=== PATIENT | male | born 1965 | race Caucasian/White ===

== ENCOUNTER 2018-01-17 18:14 | Emergency (ER) | payer SELFPAY ==
[2018-01-17 18:15] VITALS: BP 206/119; PULSE 130; RESP 17; TEMP 36.9; O2SAT 97; BMI 32.3
--- NOTE | 2018-01-17 19:10 | RAD_ITS ---
STUDY: X-RAY - LEFT FOOT CLINICAL: Male, 52 years old. Pain and swelling [place]. TECHNIQUE: 3 view(s) of the foot. COMPARISON: None. FINDINGS: There is an Achilles spur. Normal visualized subtalar, talonavicular, calcaneocuboid, tarsal and within the first tarsometatarsal joint there is small focus of bony erosion at the joint space which is well-circumscribed possibly chronic. Normal metatarsi. There is a 1 to 2 mm small erosion in the distal medial metatarsal at the metatarsophalangeal joint, which could potentially represent a prior focus of arthritis. Normal tibial and fibular sesamoid bones. Normal interphalangeal joint of the great toe. Normal phalanges of the great toe. Normal second through fifth metatarsophalangeal joints. Normal interphalangeal joints and phalanges of the lesser toes. There is soft tissue swelling around the foot. RAD/Foot min 3 Views IMPRESSION: Tissue swelling about the foot. Nonacute appearing, bony findings of possibly gouty arthrosis in the medial side of the proximal and distal metatarsal. Electronically Signed: Blessing Walls MD at 19:39 EDT Tel , Service support ,
[2018-01-17 20:16] VITALS: BP 226/109
--- NOTE | 2018-01-17 20:49 | ED.DCSUM_ITS ---
- ER Visit Summary Date of Service: 01/17/18 Chief Complaint: Pain and swelling of left foot. History of Present Illness: The patient is a 52 M who presents with pain and swelling in his left foot. This is been present for about 5 days. He does have a history of prior similar symptoms on multiple occasions. He has been diagnosed with gout previously. He has no other complaints. He denies recent illness. He denies fever chest pain shortness of breath lightheadedness dizziness nausea vomiting headache. Physical Examination: Initial blood pressure 206/119 heart rate 130 Patient resting comfortably no distress Heart regular rate and rhythm Lungs are clear Abdomen soft Patient does have some soft tissue swelling and mild erythema over the left foot it is not hot to the touch there is no lymphangitic streaking he has no calf tenderness he has an easily palpable dorsalis pedis pulse with brisk capillary refill normal sensation Test Results: Foot x-ray shows findings consistent with possible gouty arthrosis. Emergency Department Course and Treatment: Patient has a history of gout. His history and examination are consistent with possible gout and his x-ray findings support this. He has asymptomatic elevated blood pressure with a known history of hypertension. I advised that he follow-up as an outpatient in regards to this. Given lack of any other symptoms no emergent evaluation for this is indicated. Repeat heart rate was 114. Patient will be given a prescription for prednisone and [place]. He understands to return for new or worsening symptoms and was instructed on specific signs and symptoms to monitor for and was discharged home. Treatment Plan: [] Disposition: Discharge Impression: Gout, left foot This note was generated with [employer] dictation software. It may contain incorrect words, spelling, and punctuation that were not noted in review of the chart prior to signing ED Disposition - Plan for ED Patient: Chief Complaint: Lower Extremity Injury Referrals: Care Physician,No Primary [Primary Care Provider] -
--- NOTE | 2018-01-17 20:50 | DCINST.ED_ITS ---
ED Disposition - Plan for ED Patient: Chief Complaint: Lower Extremity Injury Instructions: ED Arthritis Gout Prescriptions: Hydrocodone Bitart/Apap 5-325 [[place] 5MG-325MG] 1 tab PO Q6H PRN PRN 3 Days #10 tab PRN Reason: Pain Prednisone [Deltasone] 60 mg PO DAILY #15 tab Referrals: Care Physician,No Primary [Primary Care Provider] - Mitzi Whitman [NON-STAFF] -
--- NOTE | 2018-01-17 20:52 | EKG12_ITS ---
Test Reason : LOWER EXTRE PAIN Blood Pressure : / mmHG Vent. Rate : 111 BPM Atrial Rate : 111 BPM P-R Int : 158 ms QRS Dur : 094 ms QT Int : 360 ms P-R-T Axes : 053 000 040 degrees QTc Int : 489 ms Sinus tachycardia Otherwise normal ECG Confirmed by JERRI MUNOZ, CLARIBEL ([id number]), development editor JESSA CHASE ([id number]) on 01/20/2018 12:28:00 PM Referred By: BETSY Confirmed By:CLARIBEL GUTHRIE MD
[2018-01-17 21:16] LABS: Bacteria 0 SEEN /hpf (None Seen); Mucous, Urine 0 SEEN /hpf (<or=2+); Red Blood Cells-Urine 0 SEEN /hpf (0-5); Squamous Epithelial Cells - UA 0 SEEN /hpf (0-5); White Blood Cells 0 SEEN /hpf (0-5)
[2018-01-17 21:18] LABS: Color, Urine Yellow (Yellow); Glucose, Dipstick Normal (Normal); Ketone-Dipstick Negative (Negative); Leukocyte Esterase-Dipstick 25 /ul (Negative); Nitrite-Dipstick Negative (Negative); Occult Blood-Urine 50 /ul (Negative); Protein-Dipstick 500 mg/dl (Negative); Urine Clarity Clear (Clear); Urine Urobilinogen 12 mg/dl (Normal)
[2018-01-17 21:19] LABS: Urine Bilirubin Dipstick 1 mg/dL (Negative)
[2018-01-17 21:22] LABS: Absolute Lymphocyte Count 1.58 X10^3/ul (0.83-4.51); Absolute Neutrophil Count 8.9 X10^3/uL (2.0-7.7); Basophil# 0.02 X10^3/uL; Basophil% 0.2 % (0-1); Eosinophil# 0.02 X10^3/uL; Eosinophils% 0.2 % (0-5); Hematocrit 40.7 % (40-54); Hemoglobin 13.4 g/dl (13.0-16.5); Lymphocyte # 1.58 X10^3/ul (4.0); Lymphocyte % 13.3 % (19-41); Mean Corp Hgb Conc 32.9 g/gl (32-36); Mean Corpuscular Hgb 30.8 pg (27.0-32.0); Mean Corpuscular Volume 93.6 fL (80-94); Mean Platelet Vol. 9.7 fl (6.2-12.0); Monocyte# 1.37 X10^3/uL; Monocyte% 11.5 % (0-10); Neutrophil # 8.86 X10^3/uL (2.7-7.7); Neutrophil % 74.5 % (47-70); POSITIVE COUNT NO; POSITIVE DIFFERENTIAL NO; POSITIVE MORPHOLOGY NO; Platelet Count 319 K/mm3 (150-450); RBC Distribution Width CV 13.1 % (11.6-14.6); RBC Distribution Width SD 43.9 fl (35.1-43.9); Red Blood Count 4.35 M/mm3 (4.6-6.2); White Blood Count 11.9 K/mm3 (4.4-11.0)
[2018-01-17 21:28] LABS: Fine Granular Cast- Urine 0-5 SEEN /lpf (0-5)
[2018-01-17 21:29] LABS: Amorphous Sediment 1+
--- NOTE | 2018-01-17 21:30 | RAD_ITS ---
STUDY: X-RAY CHEST REASON FOR EXAM: Male, 52 years old. Hypertension TECHNIQUE: Frontal and lateral views of the chest were obtained. COMPARISON: None. FINDINGS: The lungs are hyperinflated. There are no focal airspace opacities. There is no demonstrated pleural abnormality. The cardiac silhouette is normal in size. The mediastinum and hilar regions are unremarkable. Normal visualized pulmonary arteries. Normal visualized aortic arch and descending thoracic aorta. There are diffuse degenerative changes of the visualized spine. The visualized ribs, clavicles, and shoulders are unremarkable. There is no demonstrated abnormality of the visualized upper abdomen. RAD/Chest PA and Lateral IMPRESSION: No acute cardiopulmonary abnormalities. Hyperinflation suggests COPD. Electronically Signed: Angelica Silva MD at 22:11 EDT Tel Direct: [phone], Service support ,
[2018-01-17 21:35] LABS: Anion Gap 8 (5-15); BUN 20 mg/dL (7-18); BUN/Creat Ratio 15.7 RATIO (10-20); Calcium,Total 9.2 mg/dL (8.5-10.1); Chloride 101 mmol/L (98-107); Creatinine, Serum 1.27 mg/dL (0.70-1.30); EST Glomerular Filtration Rate 64 mL/min (>60); Est Glom Filt Rate - Afr Amer 77 mL/min (>60); Glucose 105 mg/dL (74-106); Sodium Level 138 mmol/L (136-145)
[2018-01-17] MEDS: HYDROcodone Bitartrate/Apap 5/325 Tablet PO (22:00)
--- NOTE | 2018-01-17 22:30 | ED.DEP ---
ED Disposition - Plan for ED Patient: Chief Complaint: Lower Extremity Injury Instructions: ED Arthritis Gout, ED Hypertension Conf Out Of Control Prescriptions: Hydrocodone Bitart/Apap 5-325 [[place] 5MG-325MG] 1 tab PO Q6H PRN PRN 3 Days #10 tab PRN Reason: Pain Prednisone [Deltasone] 60 mg PO DAILY #15 tab Referrals: Mitzi Whitman [NON-STAFF] - Care Physician,No Primary [Primary Care Provider] - Juanito Trujillo MD [NON-STAFF] -
[2018-01-17 22:33] VITALS: BP 205/90; PULSE 89; RESP 16; O2SAT 99
== END 2018-01-17 22:38 | disposition home or self-care (01) ==
PROVIDERS: Emergency Provider Emergency Medicine
DX: M10.9 Gout, unspecified (principal); I10 Essential (primary) hypertension; Z79.899 Other long term (current) drug therapy
CPT/HCPCS: 71046; 73630; 80048; 81001; 84484; 85025; 93005; 99284; A4216

== ENCOUNTER → 2018-07-22 | Outpatient (CLI) | payer MEDICAID, SELFPAY ==
[2018-07-17 13:50] VITALS: BMI 36.8
[2018-07-22 09:21] LABS: Absolute Neutrophil Count 4.7 X10^3/uL (2.0-7.7); Basophil# 0.03 X10^3/uL; Basophil% 0.4 % (0-1); Eosinophil# 0.26 X10^3/uL; Hematocrit 44.1 % (40-54); Hemoglobin 15.2 g/dl (13.0-16.5); Lymphocyte % 30.3 % (19-41); Mean Corp Hgb Conc 34.5 g/gl (32-36); Mean Corpuscular Hgb 29.3 pg (27.0-32.0); Mean Platelet Vol. 9.8 fl (6.2-12.0); Monocyte# 0.91 X10^3/uL; Monocyte% 10.6 % (0-10); Neutrophil # 4.74 X10^3/uL (2.7-7.7); Neutrophil % 55.3 % (47-70); Platelet Count 336 K/mm3 (150-450); RBC Distribution Width CV 12.9 % (11.6-14.6); RBC Distribution Width SD 40.1 fl (35.1-43.9); Red Blood Count 5.19 M/mm3 (4.6-6.2); White Blood Count 8.6 K/mm3 (4.4-11.0)
[2018-07-22 09:30] LABS: POSITIVE COUNT NO; POSITIVE DIFFERENTIAL NO; POSITIVE MORPHOLOGY NO
[2018-07-22 09:52] LABS: AST(SGOT) 24 U/L (15-37); Alanine Aminotransfer ALT/SGPT 37 U/L (16-61); Albumin, Serum 4.1 g/dL (3.2-5.0); Alkaline Phosphatase 109 U/L (45-117); Anion Gap 7 (5-15); BUN 15 mg/dL (7-18); BUN/Creat Ratio 11.5 RATIO (10-20); Bilirubin, Direct 0.08 mg/dL (0.00-0.30); Calcium,Total 9.1 mg/dL (8.5-10.1); Chloride 102 mmol/L (98-107); Cholesterol 230 mg/dL (200); Creatinine, Serum 1.31 mg/dL (0.70-1.30); EST Glomerular Filtration Rate 61 mL/min (>60); Est Glom Filt Rate - Afr Amer 74 mL/min (>60); Globulin 4.1 g/dL (2.2-4.2); Glucose 112 mg/dL (74-106); High Density Lipoprotein 49 mg/dL; Magnesium 2.1 mg/dL (1.6-2.6); Protein, Total 8.2 g/dL (6.4-8.2); Sodium Level 141 mmol/L (136-145); T4 Total, Thyroxin 8.2 ug/dL (4.5-12.1); Thyroid Stim Hormone (TSH) 3.78 uIU/mL (0.358-3.74); Triglycerides 294 mg/dL; Very Low Density Lipoprotein 59 mg/dL (5-40)
== END | disposition home or self-care (01) ==
LOC: LAB 08:10
PROVIDERS: Referring Provider Internal Medicine Cardiovascular Disease; Visit Provider Internal Medicine Cardiovascular Disease
DX: I10 Essential (primary) hypertension (principal)
CPT/HCPCS: 36415; 80048; 80061; 80076; 83735; 84436; 84443; 85025

== ENCOUNTER → 2018-07-30 | Outpatient (CLI) | payer MEDICAID, SELFPAY ==
[2018-07-17 13:50] VITALS: BMI 36.8
--- NOTE | 2018-07-30 09:39 | RDU_ITS ---
Reason For Study: HTN Right Renal Artery Left Renal Artery Right renal artery ostium Left renal artery ostium 119.4/30.9 104.3/35.2 RSV/EDV. PSV/EDV. Right renal artery proximal Left renal artery proximal PSV/EDV 108/36.9 PSV/EDV. 110.4/32.5 . Right renal artery mid 138.6/39.9 Left renal artery mid 90.3/27.4 PSV/EDV. PSV/EDV . Right renal artery distal Left renal artery distal 165.8/40 124.8/41.9 PSV/EDV. PSV/EDV. Right Renal Parenchyma Left Renal Parenchyma Upper Pole Medula 24.7/8.1 PSV/EDV. Left upper pole medulla 22.5/8.2 Right upper pole medulla EDR 0.33 . PSV/EDV . Right upper pole medulla R.I. Left upper pole medulla EDR 0.36 . 0.67 . Left upper pole medulla R.I. 0.64 . Upper Chaitanya Cortx 17.9/7.5 PSV/EDV. UP Cortex 16.4/6 PSV/EDV. Right upper pole cortex EDR 0.42 . Left upper pole cortex EDR 0.37 . Right upper pole cortex R.I. 0.58 . Left upper pole cortex R.I. 0.64 . Right lower Pole medulla 28.4/10.6 Left lower Pole medulla 24.1/8.7 PSV/EDV . PSV/EDV . Right lower pole medulla EDR 0.37 . Left lower pole medulla EDR 0.36 . Right lower pole medulla R.I. Left lower pole medulla R.I. 0.64 . 0.63 . Lower Pole Cortx 18.1/6.5 PSV/EDV. Lower Pole Cortex 21/8.1 PSV/EDV. Left lower pole cortex EDR 0.36 . Right lower pole cortex EDR 0.39 . Left lower pole cortex R.I. 0.64 . Right lower pole cortex R.I. 0.61 . Left Renal Hilar Right Renal Hilar LT Hilar avg 35.1/10.4 PSV/EDV . Right Hilar avg 46.8/15.7 PSV/EDV. Left hilar acceleration time 40 Right hilar acceleration time 70 m/sec. m/sec. Left Renal Dimensions Right Renal Dimensions Left kidney size 10.42 cm . Right kidney size 10.8 cm . Left cortical dimension 1.24 cm . Right cortical dimension 1.68 cm . Hypoechoic structure noted Hypoechoic structure noted measuring approximently 2.20 x 1.89 measuring approximently 3.42x 3.33 cm. cm. Aorta Proximal abdominal aorta 1.56 x 1.61 cm . Proximal abdominal aorta peak systolic velocity is 140.5 cm/sec . Distal abdominal aorta 1.39 x 1.41 cm . Distal abdominal aorta peak systolic velocity is 124.9 cm/sec . Interpretation Summary 1. Bilateral <60% renal artery stenosis. Ordering Physician: Giorgi Arriaga Performed By: Lizzette Adhikari RVT
== END | disposition home or self-care (01) ==
LOC: CVS 09:39
PROVIDERS: Referring Provider Internal Medicine Cardiovascular Disease; Visit Provider Internal Medicine Cardiovascular Disease
DX: I10 Essential (primary) hypertension (principal)
CPT/HCPCS: 93975

== ENCOUNTER → 2018-09-01 | Outpatient (CLI) | payer MEDICAID, SELFPAY ==
[2018-07-31 13:49] VITALS: BMI 36.9
[2018-08-29 13:30] VITALS: BMI 36.6
[2018-09-01] MEDS: Zolpidem Tartrate 5 MG Tablet PO (21:45)
== END | disposition home or self-care (01) ==
LOC: SL 20:30
PROVIDERS: Referring Provider Physician Assistant Medical; Visit Provider Physician Assistant Medical
DX: G47.33 Obstructive sleep apnea (adult) (pediatric) (principal); I10 Essential (primary) hypertension
CPT/HCPCS: 95811

== ENCOUNTER → 2018-09-15 | Outpatient (CLI) | payer MEDICAID, SELFPAY ==
[2018-09-15 08:35] VITALS: BMI 36.8
[2018-09-15 11:19] LABS: AST(SGOT) 19 U/L (15-37); Alanine Aminotransfer ALT/SGPT 30 U/L (16-61); Albumin, Serum 4.1 g/dL (3.2-5.0); Alkaline Phosphatase 133 U/L (45-117); Bilirubin, Direct 0.12 mg/dL (0.00-0.30); Cholesterol 106 mg/dL (200); Globulin 4.3 g/dL (2.2-4.2); High Density Lipoprotein 43 mg/dL; Protein, Total 8.4 g/dL (6.4-8.2); Triglycerides 156 mg/dL; Very Low Density Lipoprotein 31 mg/dL (5-40)
[2018-09-15 13:42] LABS: Anion Gap 7 (5-15); BUN 20 mg/dL (7-18); BUN/Creat Ratio 16.3 RATIO (10-20); Calcium,Total 9.3 mg/dL (8.5-10.1); Chloride 105 mmol/L (98-107); Creatinine, Serum 1.23 mg/dL (0.70-1.30); EST Glomerular Filtration Rate 66 mL/min (>60); Est Glom Filt Rate - Afr Amer 80 mL/min (>60); Glucose 108 mg/dL (74-106); Potassium 3.9 mmol/L (3.5-5.1); Sodium Level 140 mmol/L (136-145)
== END | disposition home or self-care (01) ==
LOC: LAB 09:42
PROVIDERS: Internal Medicine Cardiovascular Disease; Referring Provider Nurse Practitioner Family; Visit Provider Nurse Practitioner Family
DX: I10 Essential (primary) hypertension (principal); I70.1 Atherosclerosis of renal artery; E78.2 Mixed hyperlipidemia
CPT/HCPCS: 36415; 80048; 80061; 80076

== ENCOUNTER → 2018-09-22 | Outpatient (CLI) | payer MEDICAID, SELFPAY ==
[2018-09-15 08:35] VITALS: BMI 36.8
== END | disposition home or self-care (01) ==
LOC: SL 13:53
PROVIDERS: Referring Provider Nurse Practitioner Acute Care; Visit Provider Nurse Practitioner Acute Care
DX: Z00.00 Encounter for general adult medical examination without abnormal findings (principal)

== ENCOUNTER → 2019-06-01 11:14 | Outpatient (CLI) | payer MEDICAID, SELFPAY ==
[2019-05-20 10:09] VITALS: BMI 36.8
[2019-06-01 12:04] LABS: Anion Gap 7 (5-15); BUN 25 mg/dL (7-18); BUN/Creat Ratio 17.6 RATIO (10-20); Calcium,Total 9.2 mg/dL (8.5-10.1); Chloride 104 mmol/L (98-107); Creatinine, Serum 1.42 mg/dL (0.70-1.30); EST Glomerular Filtration Rate 56 mL/min (>60); Est Glom Filt Rate - Afr Amer 67 mL/min (>60); Glucose 113 mg/dL (74-106); Potassium 3.4 mmol/L (3.5-5.1); Sodium Level 141 mmol/L (136-145)
== END ==
PROVIDERS: Referring Provider Internal Medicine Cardiovascular Disease; Visit Provider Internal Medicine Cardiovascular Disease
DX: I70.1 Atherosclerosis of renal artery (principal); I10 Essential (primary) hypertension
CPT/HCPCS: 36415; 80048

== ENCOUNTER → 2020-03-09 12:12 | Outpatient (CLI) | payer MEDICAID, SELFPAY ==
[2020-03-09 13:13] LABS: Hemoglobin A1c 6.5 % (3.8-5.6)
[2020-03-09 13:22] LABS: ALB/GLOB Ratio 1.1 RATIO (0.9-2.4); AST(SGOT) 23 U/L (15-37); Alanine Aminotransfer ALT/SGPT 49 U/L (16-61); Albumin, Serum 4.1 g/dL (3.2-5.0); Alkaline Phosphatase 131 U/L (45-117); Anion Gap 3 (5-15); BUN 20 mg/dL (7-18); BUN/Creat Ratio 13.2 RATIO (10-20); Calcium,Total 9.5 mg/dL (8.5-10.1); Chloride 103 mmol/L (98-107); Cholesterol 140 mg/dL (200); Creatinine, Serum 1.51 mg/dL (0.70-1.30); EST Glomerular Filtration Rate 52 mL/min (>60); Est Glom Filt Rate - Afr Amer 62 mL/min (>60); Globulin 3.8 g/dL (2.2-4.2); Glucose 103 mg/dL (74-106); High Density Lipoprotein 43 mg/dL; Potassium 3.7 mmol/L (3.5-5.1); Protein, Total 7.9 g/dL (6.4-8.2); Sodium Level 139 mmol/L (136-145); Triglycerides 222 mg/dL; Very Low Density Lipoprotein 44 mg/dL (5-40)
== END ==
PROVIDERS: Referring Provider Physician Assistant Medical; Visit Provider Physician Assistant Medical
DX: I70.1 Atherosclerosis of renal artery (principal); I10 Essential (primary) hypertension
CPT/HCPCS: 36415; 80053; 80061; 83036

== ENCOUNTER → 2020-05-27 14:20 | Outpatient (CLI) | payer MEDICAID, SELFPAY ==
[2020-05-19 14:17] VITALS: BMI 39.6
--- NOTE | 2020-05-27 14:24 | ECHOCS_ITS ---
Reason For Study: HTN Procedure This was a 2D Doppler, Color Flow transthoracic echocardiogram. The study was technically difficult. Contrast injection was performed. Exam performed in department. Left Ventricle Normal LV size. Left ventricular systolic function is normal. The estimated ejection fraction is 60 %. Diastolic function is indeterminate. No regional wall motion abnormalities noted. Right Ventricle Normal RV size. Normal systolic function. Atria Normal left atrium. Normal right atrium. No doppler evidence for ASD. Mitral Valve There is no mitral annular calcification. Normal mitral valve. Trivial mitral valve insufficiency. Tricuspid Valve Normal tricuspid valve. Trivial tricuspid valve insufficiency. Unable to estimate RV systolic pressure/pulmonary artery pressure due to technically difficult study. Aortic Valve Trisinus/trileaflet aortic valve. Normal aortic valve. Pulmonic Valve The pulmonic valve is not well visualized. Trivial pulmonic valve insufficiency. Great Vessels The aortic root is not well visualized. Pericardium/Pleural Trivial pericardial effusion. There are no echocardiographic indications of cardiac tamponade. Medication 22 gauge I.V. with prn adaptor inserted into right arm. Diluted definity 2ml given slow IV push to enhance endocardial definition. MMode/2D Measurements & Calculations LVIDd: 4.6 cm IVSd: 0.94 cm LA dimension: 3.8 cm LVIDs: 3.4 cm LVPWd: 1.1 cm FS: 25.4 % LAV(MOD-bp): 43.2 ml LA A4 area: 15.2 cm2 RA A4 area: 14.3 cm2 LAV(MOD-bp) Indexed: 20.3 ml/m2 LAV(MOD-sp2): 50.8 ml LAV(MOD-sp4): 34.8 ml Time Measurements MV dec time: 0.19 sec Doppler Measurements & Calculations MV E max mohinder: 103.3 cm/sec Lat Peak E' Mohinder: 8.4 cm/sec Med Peak E' Mohinder: 6.8 cm/sec MV A max mohinder: 81.1 cm/sec E/E' lat: 12.3 E/E' med: 15.2 MV E/A: 1.3 MV V2 max: 86.7 cm/sec MV P1/2t max mohinder: 86.7 cm/sec Ao V2 max: 131.6 cm/sec MV max P.0 mmHg MV P1/2t: 59.3 msec Ao max P.9 mmHg MV V2 mean: 57.3 cm/sec MV dec slope: 428.3 cm/sec2 MV mean P.5 mmHg MV V2 VTI: 21.1 cm MVA(P1/2t): 3.7 cm2 LV V1 max: 123.2 cm/sec PA V2 max: 97.3 cm/sec LV V1 max P.1 mmHg Interpretation Summary The study was technically difficult. Contrast injection was performed. Left ventricular systolic function is normal. The estimated ejection fraction is 60 %. Trivial mitral valve insufficiency. Trivial tricuspid valve insufficiency. Trivial pulmonic valve insufficiency. Trivial pericardial effusion. There are no echocardiographic indications of cardiac tamponade. Unable to estimate RV systolic pressure/pulmonary artery pressure due to technically difficult study. Diastolic function is indeterminate. Ordering Physician: Martha Pierson Referring Physician: No PCP noted Performed By: Shaheed Torres RCS
== END ==
PROVIDERS: Referring Provider Physician Assistant Medical; Visit Provider Physician Assistant Medical
DX: I10 Essential (primary) hypertension (principal)
CPT/HCPCS: 93306; Q9957; A4216; C8929

== ENCOUNTER → 2020-05-31 11:34 | Outpatient (CLI) | payer MEDICAID, SELFPAY ==
[2020-05-19 14:17] VITALS: BMI 39.6
[2020-05-31 12:45] LABS: Uric Acid 10.4 mg/dL (3.5-7.2)
[2020-05-31 12:46] LABS: Protein, Urine (Random) 178.5 mg/dL (<11.9); Protein:Creat Ratio 1623 mg/g CRE (0-200)
== END ==
PROVIDERS: Visit Provider Internal Medicine Nephrology
DX: M10.9 Gout, unspecified (principal); N18.31 Chronic kidney disease, stage 3a
CPT/HCPCS: 36415; 82570; 84156; 84550

== ENCOUNTER → 2020-06-22 08:11 | Outpatient (CLI) | payer MEDICAID, SELFPAY ==
[2020-05-19 14:17] VITALS: BMI 39.6
--- NOTE | 2020-06-22 08:13 | RDU_ITS ---
Reason For Study: Hypertension Right Renal Artery Left Renal Artery Right renal artery ostium 119.8/25.4 Left renal artery ostium 89.6/22.3 RSV/EDV. PSV/EDV. Right renal artery proximal Left renal artery proximal PSV/EDV 106.6/25.4 PSV/EDV. 92.2/19.7 . Right renal artery mid 129.8/36.6 Left renal artery mid 121.1/31.9 PSV/EDV. PSV/EDV . Right renal artery distal 108.3/31 Left renal artery distal 133.7/34.9 PSV/EDV. PSV/EDV. Right Renal Parenchyma Left Renal Parenchyma Upper Pole Medula 38.9/9.7 PSV/EDV. Left upper pole medulla 35.5/10.9 Right upper pole medulla EDR 0.25 . PSV/EDV . Right upper pole medulla R.I. 0.75 . Left upper pole medulla EDR 0.31 . Upper Chaitanya Cortx 28.9/8.8 PSV/EDV. Left upper pole medulla R.I. 0.69 . Right upper pole cortex EDR 0.30 . UP Cortex 17.5/6.5 PSV/EDV. Right upper pole cortex R.I. 0.70 . Left upper pole cortex EDR 0.37 . Right lower Pole medulla 33.4/8.8 Left upper pole cortex R.I. 0.63 . PSV/EDV . Left lower Pole medulla 28.5/10.4 Right lower pole medulla EDR 0.26 . PSV/EDV . Right lower pole medulla R.I. 0.74 . Left lower pole medulla EDR 0.36 . Lower Pole Cortex 20.6/7.9 PSV/EDV. Left lower pole medulla R.I. 0.64 . Right lower pole cortex EDR 0.38 . Lower Pole Cortx 17.5/7.1 PSV/EDV. Right lower pole cortex R.I. 0.62 . Left lower pole cortex EDR 0.40 . Right Renal Hilar Left lower pole cortex R.I. 0.60 . Right Hilar avg 75.3/20.4 PSV/EDV. Left Renal Hilar Right hilar acceleration time 50 LT Hilar avg 69/17.5 PSV/EDV . m/sec. Left hilar acceleration time 60 Right Renal Dimensions m/sec. Right kidney size 11.76 cm . Left Renal Dimensions Right cortical dimension 1.44 cm . Left kidney size 11.73 cm . Nonvascularized hypoechoic structure Left cortical dimension 1.28 cm . noted within the kidney measuring approximently 4.60 x 4.50 x 5.13 cm. Aorta Proximal abdominal aorta 1.34 x 1.38 cm . Proximal abdominal aorta peak systolic velocity is 124.2 cm/sec . Distal abdominal aorta 1.46 x 1.49 cm . Distal abdominal aorta peak systolic velocity is 119.8 cm/sec . Interpretation Summary Maximal aortic diameter 1.46 x 1.49 cm. Velocity in the distal abdominal aorta slightly elevated at 119.8 cm/s flow invalidating the renal to aortic velocity ratio. Less than 60% stenosis bilateral renal arteries Right renal length maintained at 11.76 cm Left renal length 11.73 cm Nonvascularized right renal structure 4.6 x 4.5 x 5.1 cm consistent with a cyst. Clinical correlation would be appropriate. Ordering Physician: Chanel Bailey Performed By: Lizzette Adhikari RVT
== END ==
PROVIDERS: Referring Provider Internal Medicine Nephrology; Visit Provider Internal Medicine Nephrology
DX: I15.0 Renovascular hypertension (principal)
CPT/HCPCS: 93975

== ENCOUNTER → 2020-07-05 12:41 | Outpatient (CLI) | payer MEDICAID, SELFPAY ==
[2020-07-01 13:24] VITALS: BMI 37.1
== END ==
PROVIDERS: Visit Provider Physician Assistant Medical
DX: I10 Essential (primary) hypertension (principal)
CPT/HCPCS: 93788

== ENCOUNTER → 2020-11-21 14:57 | Outpatient (CLI) | payer MEDICAID, SELFPAY ==
[2020-11-21 15:38] LABS: Anion Gap 4 (5-15); BUN 26 mg/dL (7-18); BUN/Creat Ratio 18.1 RATIO (10-20); Calcium,Total 8.9 mg/dL (8.5-10.1); Chloride 104 mmol/L (98-107); Creatinine, Serum 1.44 mg/dL (0.70-1.30); EST Glomerular Filtration Rate 54 mL/min (>60); Est Glom Filt Rate - Afr Amer 66 mL/min (>60); Glucose 96 mg/dL (74-106); Potassium 3.7 mmol/L (3.5-5.1); Sodium Level 139 mmol/L (136-145)
== END ==
PROVIDERS: Referring Provider Nurse Practitioner Gerontology; Visit Provider Nurse Practitioner Gerontology
DX: I10 Essential (primary) hypertension (principal)
CPT/HCPCS: 36415; 80048

== ENCOUNTER → 2022-04-20 | Outpatient (CLI) | payer MEDICAID, SELFPAY ==
[2022-04-20 16:16] LABS: Absolute Lymphocyte Count 1.89 X10^3/uL (0.83-4.51); Basophil# 0.06 X10^3/uL; Basophil% 0.5 % (0-1); Eosinophils% 1.8 % (0-5); Hematocrit 44.3 % (40-54); Hemoglobin 14.3 g/dL (13.0-16.5); Lymphocyte # 1.89 X10^3/ul (0.83-4.51); Lymphocyte % 16.8 % (19-41); Mean Corp Hgb Conc 32.3 g/dL (32-36); Mean Corpuscular Hgb 28.1 pg (27.0-32.0); Mean Corpuscular Volume 87.2 fL (80-94); Mean Platelet Vol. 10.1 fl (6.2-12.0); Monocyte# 1.05 X10^3/uL; Monocyte% 9.3 % (0-10); NRBC Flagged by Analyzer 0 % (0-5); Neutrophil # 7.97 X10^3/uL (2.7-7.7); Neutrophil % 71.1 % (47-70); Platelet Count 392 K/mm3 (150-450); RBC Distribution Width CV 13.2 % (11.6-14.6); Red Blood Count 5.08 M/mm3 (4.6-6.2); White Blood Count 11.2 K/mm3 (4.4-11.0)
[2022-04-20 16:59] LABS: AST(SGOT) 19 U/L (15-37); Alanine Aminotransfer ALT/SGPT 41 U/L (16-61); Albumin, Serum 4.2 g/dL (3.2-5.0); Alkaline Phosphatase 121 U/L (45-117); Anion Gap 4 (5-15); BUN 25 mg/dL (7-18); BUN/Creat Ratio 18.7 RATIO (10-20); Bilirubin, Direct 0.15 mg/dL (0.00-0.30); Calcium,Total 9.3 mg/dL (8.5-10.1); Chloride 104 mmol/L (98-107); Cholesterol 150 mg/dL (200); Creatinine, Serum 1.34 mg/dL (0.70-1.30); EST Glomerular Filtration Rate 59 mL/min (>60); Est Glom Filt Rate - Afr Amer 71 mL/min (>60); Globulin 3.8 g/dL (2.2-4.2); Glucose 90 mg/dL (74-106); High Density Lipoprotein 41 mg/dL; Potassium 3.8 mmol/L (3.5-5.1); Sodium Level 141 mmol/L (136-145); Triglycerides 244 mg/dL; Very Low Density Lipoprotein 49 mg/dL (5-40)
== END | disposition home or self-care (01) ==
PROVIDERS: Visit Provider Physician Assistant Medical
DX: E78.2 Mixed hyperlipidemia (principal); I10 Essential (primary) hypertension
CPT/HCPCS: 36415; 80048; 80061; 80076; 85025

== ENCOUNTER → 2023-05-31 | Outpatient (CLI) | payer MEDICAID, SELFPAY ==
[2023-05-31 15:18] LABS: Absolute Lymphocyte Count 2.27 X10^3/uL (0.83-4.51); Absolute Neutrophil Count 7.4 X10^3/uL (2.0-7.7); Basophil# 0.06 X10^3/uL; Basophil% 0.6 % (0-1); Eosinophil# 0.19 X10^3/uL; Eosinophils% 1.8 % (0-5); Hematocrit 42.2 % (40-54); Hemoglobin 13.9 g/dL (13.0-16.5); Lymphocyte # 2.27 X10^3/ul (0.83-4.51); Lymphocyte % 21.1 % (19-41); Mean Corp Hgb Conc 32.9 g/dL (32-36); Mean Corpuscular Hgb 28.2 pg (27.0-32.0); Mean Corpuscular Volume 85.6 fL (80-94); Mean Platelet Vol. 10.4 fl (6.2-12.0); Monocyte% 7.4 % (0-10); NRBC Flagged by Analyzer 0 % (0-5); Neutrophil # 7.38 X10^3/uL (2.7-7.7); Neutrophil % 68.7 % (47-70); Platelet Count 370 K/mm3 (150-450); RBC Distribution Width CV 13.6 % (11.6-14.6); RBC Distribution Width SD 42.4 fl (35.1-43.9); Red Blood Count 4.93 M/mm3 (4.6-6.2); White Blood Count 10.7 K/mm3 (4.4-11.0)
[2023-05-31 16:18] LABS: AST(SGOT) 18 U/L (15-37); Alanine Aminotransfer ALT/SGPT 30 U/L (16-61); Albumin, Serum 3.8 g/dL (3.2-5.0); Alkaline Phosphatase 131 U/L (45-117); Anion Gap 3 (5-15); BUN 30 mg/dL (7-18); BUN/Creat Ratio 20.1 RATIO (10-20); Calcium,Total 8.8 mg/dL (8.5-10.1); Chloride 105 mmol/L (98-107); Cholesterol 129 mg/dL (200); Creatinine, Serum 1.49 mg/dL (0.70-1.30); EST Glomerular Filtration Rate 52 mL/min (>60); Est Glom Filt Rate - Afr Amer 63 mL/min (>60); Globulin 3.8 g/dL (2.2-4.2); Glucose 104 mg/dL (74-106); High Density Lipoprotein 38 mg/dL; Potassium 3.5 mmol/L (3.5-5.1); Protein, Total 7.6 g/dL (6.4-8.2); Sodium Level 141 mmol/L (136-145); Triglycerides 415 mg/dL
== END | disposition home or self-care (01) ==
PROVIDERS: PCP Family Medicine; Referring Provider Physician Assistant Medical; Visit Provider Physician Assistant Medical
DX: E78.2 Mixed hyperlipidemia (principal); I10 Essential (primary) hypertension
CPT/HCPCS: 36415; 80053; 80061; 85025

== ENCOUNTER → 2024-06-02 | Outpatient (CLI) | payer MEDICARE, MEDICAID, SELFPAY ==
[2024-06-02 14:49] LABS: Absolute Lymphocyte Count 2.05 X10^3/uL (0.83-4.51); Absolute Neutrophil Count 6.1 X10^3/uL (2.0-7.7); Basophil# 0.07 X10^3/uL; Basophil% 0.7 % (0-1); Eosinophils% 2.1 % (0-5); Hematocrit 43.5 % (40-54); Hemoglobin 14.3 g/dL (13.0-16.5); Lymphocyte # 2.05 X10^3/ul (0.83-4.51); Lymphocyte % 21.3 % (19-41); Mean Corp Hgb Conc 32.9 g/dL (32-36); Mean Corpuscular Hgb 27.9 pg (27.0-32.0); Mean Corpuscular Volume 84.8 fL (80-94); Mean Platelet Vol. 9.5 fl (6.2-12.0); Monocyte# 1.14 X10^3/uL; Monocyte% 11.8 % (0-10); NRBC Flagged by Analyzer 0 % (0-5); Neutrophil # 6.12 X10^3/uL (2.7-7.7); Neutrophil % 63.5 % (47-70); Platelet Count 409 K/mm3 (150-450); RBC Distribution Width CV 13.5 % (11.6-14.6); RBC Distribution Width SD 42.1 fl (35.1-43.9); Red Blood Count 5.13 M/mm3 (4.6-6.2); White Blood Count 9.6 K/mm3 (4.4-11.0)
[2024-06-02 17:27] LABS: Hemoglobin A1c 6.7 % (<=5.6)
[2024-06-02 18:23] LABS: ALB/GLOB Ratio 1.1 RATIO (0.9-2.4); AST(SGOT) 21 U/L (<=37); Alanine Aminotransfer ALT/SGPT 21 U/L (<=46); Alkaline Phosphatase 145 U/L (40-129); Anion Gap 11 (5-15); BUN 26 mg/dL (4-19); BUN/Creat Ratio 17.9 RATIO (10-20); Calcium,Total 9.2 mg/dL (7.6-11.0); Carbon Dioxide 28.4 mmol/L (21.0-32.0); Chloride 101 mmol/L (98-108); Creatinine, Serum 1.44 mg/dL (0.70-1.20); EST Glomerular Filtration Rate 57 (>60); Globulin 3.5 g/dL (2.2-4.2); Glucose 90 mg/dL (70-99); Potassium 3.8 mmol/L (3.3-5.1); Protein, Total 7.4 g/dL (5.9-8.4); Sodium Level 141 mmol/L (133-145); Total Bilirubin 0.39 mg/dL (0.00-1.30)
[2024-06-02 19:21] LABS: Cholesterol 166 mg/dL (<=200); High Density Lipoprotein 38 mg/dL; Low Density Lipoprotein Calc. 64 mg/dL; Triglycerides 322 mg/dL; Very Low Density Lipoprotein 64 mg/dL (5-40)
[2024-06-14 12:07] LABS: Dopamine, Pl 40 pg/mL (0-48); Epinephrine, Pl 312 pg/mL (0-62); Norepinephrine, Pl 1199 pg/mL (0-874); Renin, Plasma 2.366 ng/mL/hr (0.167-5.380)
== END | disposition home or self-care (01) ==
LOC: LAB 14:29
PROVIDERS: PCP Family Medicine; Referring Provider Physician Assistant Medical; Visit Provider Physician Assistant Medical
DX: G47.33 Obstructive sleep apnea (adult) (pediatric) (principal); I70.1 Atherosclerosis of renal artery; I10 Essential (primary) hypertension; E78.2 Mixed hyperlipidemia; R06.00 Dyspnea, unspecified; R73.09 Other abnormal glucose
CPT/HCPCS: 36415; 80053; 80061; 82384; 83036; 84244; 85025

== ENCOUNTER → 2024-07-13 | Outpatient (CLI) | payer MEDICARE, SELFPAY ==
--- NOTE | 2024-07-13 13:25 | ECHOD_ITS ---
Reason For Study Reason For Study: HTN Procedure This was a 2D Doppler, Color Flow transthoracic echocardiogram. Exam performed in department. Left Ventricle Normal LV size. Left ventricular systolic function is normal. The left ventricular ejection fraction is 60 %. No regional wall motion abnormalities noted. Right Ventricle Normal RV size. Normal systolic function. Atria Normal left atrium. Normal right atrium. Mitral Valve Normal mitral valve. Tricuspid Valve Normal tricuspid valve. Aortic Valve Trisinus/trileaflet aortic valve. Pulmonic Valve Normal pulmonic valve. Great Vessels Normal aortic root. The pulmonary artery is normal size. Inferior vena cava collapse with respiration. Pericardium/Pleural Small (<1.0 cm) pericardial effusion. MMode/2D Measurements & Calculations LVIDd: 5.3 cm IVSd: 1.2 cm Ao root diam: 3.0 cm LVIDs: 3.4 cm LVPWd: 1.2 cm RVDd: 3.9 cm FS: 35.5 % LAV(MOD-bp): 51.2 ml LVAd ap4: 27.1 cm2 SV(MOD-sp4): 41.6 ml LAV(MOD-bp) Indexed: 23.8 ml/m2 LVLd ap4: 8.9 cm SI(MOD-sp4): 19.3 ml/m2 LAV(MOD-sp2): 59.1 ml EDV(MOD-sp4): 70.0 ml LAV(MOD-sp4): 42.2 ml EDV(sp4-el): 69.7 ml LVAs ap4: 15.9 cm2 LVLs ap4: 7.9 cm ESV(MOD-sp4): 28.3 ml ESV(sp4-el): 27.1 ml EF(MOD-sp4): 59.5 % EF(sp4-el): 61.1 % SV(sp4-el): 42.6 ml LA A4 area: 17.0 cm2 LA dimension(2D): 4.5 cm RA A4 area: 17.2 cm2 TAPSE: 2.2 cm Time Measurements MV dec time: 0.19 sec Doppler Measurements & Calculations MV E max mohinder: 98.4 cm/sec Lat Peak E' Mohinder: 11.9 cm/sec Med Peak E' Mohinder: 6.7 cm/sec MV A max mohinder: 83.1 cm/sec E/E' lat: 8.2 E/E' med: 14.8 MV E/A: 1.2 MV V2 max: 120.7 cm/sec MV P1/2t max mohinder: 122.3 cm/sec Ao V2 max: 142.5 cm/sec MV max P.8 mmHg MV P1/2t: 65.6 msec Ao max P.1 mmHg MV V2 mean: 71.3 cm/sec Ao V2 mean: 92.3 cm/sec MV mean P.4 mmHg MV dec slope: 546.4 cm/sec2 Ao mean P.0 mmHg MV V2 VTI: 29.6 cm MVA(P1/2t): 3.4 cm2 Ao V2 VTI: 28.7 cm AV (velocity ratio): 0.89 LV V1 max: 117.7 cm/sec PA V2 max: 86.4 cm/sec LV V1 max P.6 mmHg LV V1 mean P.1 mmHg LV V1 mean: 83.2 cm/sec LV V1 VTI: 25.6 cm ECHO/Echo Complete Interpretation Summary Normal LV size. Left ventricular systolic function is normal. The left ventricular ejection fraction is 60 %. Structurally normal valves. Ordering Physician: Martha Pierson Referring Physician: Martha Pierson Performed By: Shaheed Torres RCS
--- NOTE | 2024-07-13 14:27 | CT_ITS ---
PROCEDURE: ABDOMEN WITHOUT IV CONTRAST 07/13/2024 REASON FOR EXAM: R/O PHEOCHROMOCYTOMA TECHNIQUE: Abdomen CT without intravenous contrast. Coronal and Sagittal reconstruction series were provided. One or more dose reduction techniques were used (e.g., Automated exposure control, adjustment of the mA and/or kV according to patient size, use of iterative reconstruction technique PATIENT PREPARATION: Per protocol ORAL CONTRAST TYPE: None. RADIATION DOSE SUMMARY: CTDlvol: 20.66 mGy DLP: 680.95 mGycm COMPARISON: None available FINDINGS: Noncontrast technique limits evaluation of the abdominal viscera. Small appearing partially imaged pericardial effusion noted. Basilar atelectasis and/or scarring. The liver, contracted appearing gallbladder, pancreas and spleen appear within limits on noncontrast imaging. Left upper pole renal cortical cyst. Right lower pole exophytic renal cyst measuring 7 cm. No renal stones or hydronephrosis. The adrenal glands appear adrenal form and within limits for size without nodule or mass identified. Abdominal aorta appears within limits on noncontrast imaging without aneurysm. No adenopathy identified. The visualized bowel appears within limits. No free air. Lumbar spondylosis/discogenic change. CT/Abdomen without IV Contrast IMPRESSION: Small appearing partially imaged pericardial effusion noted. The adrenal glands appear within limits. Reading Location: [id number]
== END | disposition home or self-care (01) ==
PROVIDERS: PCP Family Medicine; Referring Provider Physician Assistant Medical; Visit Provider Physician Assistant Medical
DX: R06.09 Other forms of dyspnea (principal)
CPT/HCPCS: 74150; 93306

== ENCOUNTER → 2024-08-11 | Outpatient (CLI) | payer MEDICARE, SELFPAY | END | disposition home or self-care (01) | LOC: SL 11:19 | PROVIDERS: PCP Family Medicine; Referring Provider Nurse Practitioner Family; Visit Provider Nurse Practitioner Family | DX: G47.33 Obstructive sleep apnea (adult) (pediatric) (principal) | CPT/HCPCS: 98960; G0463 ==

== ENCOUNTER → 2024-08-18 | Outpatient (CLI) | payer MEDICARE, SELFPAY | END | disposition home or self-care (01) | LOC: SL 15:14 | PROVIDERS: PCP Family Medicine; Visit Provider Nurse Practitioner Family | DX: Z00.00 Encounter for general adult medical examination without abnormal findings (principal) ==